=== PATIENT | female | born 1935 | race African-American/Black ===

== ENCOUNTER 2017-02-26 12:14 | Emergency (ER) | payer MEDICARE, MEDICAID ==
[~2017-02-26] VITALS: Ht 165.1 cm; Wt 68.0 kg
[~2017-02-26 12:14] MED LIST: ASPIRIN; DIOVAN; INSULIN; SIMVASTATIN
[2017-02-26 14:31] VITALS: BP 147/73
[2017-02-26] MEDS ORDERED: ACETAMINOPHEN 500MG TABLET PO STA (14:35)
[2017-02-26] MEDS ORDERED: CLONIDINE 0.2MG TABLET PO ONE (14:45)
[2017-02-26] MEDS ORDERED: IBUPROFEN 400MG TABLET PO ONE (14:45)
[2017-02-26 15:35] LABS: INR 1.2; PARTIAL THROMBOPLASTIN TIME 27.3 sec (23.4-31.0); PROTHROMBIN TIME 12.4 sec (9.4-11.6)
[2017-02-26 15:38] LABS: CARBON DIOXIDE 27 mEq/L (21-32); CHLORIDE 107 mEq/L (98-107)
[2017-02-26 15:41] LABS: HEMATOCRIT. 39.2 % (36.0-48.0); HEMOGLOBIN. 12.5 g/dL (12.0-16.0); MEAN CORPUSCULAR HEMOGLOBIN 28.2 pg (28.0-32.0); MEAN CORPUSCULAR VOLUME 88.2 fL (81.0-99.0); MEAN PLATELET VOLUME 9.3 fl (7.4-10.4); PLATELET 142 x1000/uL (130-400); RED BLOOD CELL COUNT 4.45 mill/uL (4.2-5.4); RED CELL DISTRIBUTION WIDTH 14.7 % (11.6-14.6)
[2017-02-26 16:22] LABS: ATYPICAL LYMPHOCYTES 1; PLATELET ESTIMATE NORMAL
== END 2017-02-26 20:30 | disposition home or self-care (01) ==
LOC: ER 12:38
DX: M19.90 Unspecified osteoarthritis, unspecified site (principal); R25.2 Cramp and spasm; R06.02 Shortness of breath; I10 Essential (primary) hypertension; E78.00 Pure hypercholesterolemia, unspecified; E11.9 Type 2 diabetes mellitus without complications; R79.1 Abnormal coagulation profile; Z79.82 Long term (current) use of aspirin
CPT/HCPCS: 36415; 71010; 73560; 80048; 83735; 85025; 85610; 85730; 93005; 93970; 99285

== ENCOUNTER → 2017-04-24 | Outpatient (CLI) | payer MEDICARE, MEDICAID ==
[~2017-04-24] MED LIST changes: +ASPI-1159 PO; -ASPIRIN; +ASPIRIN PO; +IOHEXOL-350 100 ML BOTTLE ONE; +NVLG73 SUBCUT
== END | disposition home or self-care (01) ==
LOC: CT 04-23 09:02
PROVIDERS: ATTEND Internal Medicine
DX: I70.0 Atherosclerosis of aorta (principal)
CPT/HCPCS: 75635; Q9967

== ENCOUNTER 2017-04-25 21:16 | Inpatient (IN) | payer MEDICARE, MEDICAID ==
[~2017-04-25] VITALS: Ht 167.6 cm; Wt 79.8 kg
[~2017-04-25 21:16] MED LIST changes: -ASPI-1159 PO; -IOHEXOL-350 100 ML BOTTLE ONE; -NVLG73 SUBCUT
[2017-04-25] MEDS ORDERED: SODIUM CHLORIDE 0.9% 1,000 ML IV SCH (21:58)
[2017-04-25] MEDS ORDERED: FAMOTIDINE 20MG/2ML VIAL IV ONE (22:00)
[2017-04-25] MEDS ORDERED: METHYLPREDNISOLONE SOD SUCC 125 MG/2 ML VIAL IV ONE (22:00)
[2017-04-25] MEDS ORDERED: DIPHENHYDRAMINE 50MG/ML VIAL IV ONE (22:00)
[2017-04-25 22:57] LABS: BASOPHILS % 0.4 % (0.0-2.0); EOSINOPHILS % 1.8 % (0.0-5.0); HEMATOCRIT. 39.1 % (36.0-48.0); LYMPHOCYTES % 10.2 % (20.0-50.0); MEAN CORPUSCULAR HEMOGLOBIN 28.9 pg (28.0-32.0); MEAN PLATELET VOLUME 8.5 fl (7.4-10.4); MONOCYTES % 5.2 % (2.0-8.0); NEUTROPHILS % 82.4 % (40.0-76.0); PLATELET 165 x1000/uL (130-400); RED BLOOD CELL COUNT 4.49 mill/uL (4.2-5.4); RED CELL DISTRIBUTION WIDTH 14.4 % (11.6-14.6)
[2017-04-25 22:58] LABS: CHLORIDE 104 mEq/L (98-107); TROPONIN I 0.12 ng/mL (0.00-0.04)
[2017-04-25 23:05] LABS: INR 1.2; PROTHROMBIN TIME 12.7 sec (9.4-11.6)
[2017-04-25] MEDS ORDERED: SODIUM CHLORIDE 0.9% 1000ML BAG (SEPSIS BOLUS) IV ONE (23:45)
[2017-04-25] MEDS ORDERED: VANCOMYCIN 1 G PREMIX 200 ML IV SCH (23:45)
[2017-04-26 02:07] LABS: CLARITY URINE CLEAR (CLEAR); COLOR URINE YELLOW (YELLOW); KETONES URINE NEGATIVE (NEGATIVE); LEUKOCYTE ESTERASE URINE 2+ (NEGATIVE); NITRITE URINE NEGATIVE (NEGATIVE); OCCULT BLOOD URINE NEGATIVE (NEGATIVE); PROTEIN URINE NEGATIVE (NEGATIVE); SPECIFIC GRAVITY URINE 1.008 (1.005-1.030)
[2017-04-26 09:33] VITALS: BP 131/65
[2017-04-26 09:40] VITALS: BP 131/65
[2017-04-26] MEDS ORDERED: ASPI-1159 PO (09:48)
[2017-04-26] MEDS ORDERED: DEXTROSE 50% WATER 50ML SYRINGE IV PRN (10:30)
[2017-04-26] MEDS ORDERED: HYDROCODONE/ACETAMINOPHEN 5/325MG TABLET PO PRN (10:30)
[2017-04-26] MEDS: ASPIRIN 81MG EC TABLET PO SCH (10:53)
[2017-04-26] MEDS: METHYLPREDNISOLONE SOD SUCC 40 MG/ML VIAL IV SCH ×2 (10:53→21:12)
[2017-04-26 12:00] VITALS: BP 127/56
[2017-04-26] MEDS: INSULIN LISPRO 100 UNITS/ML SUBCUT SCH ×2 (12:19→17:28)
[2017-04-26] MEDS: BLOOD SUGAR DIAGNOSTIC STRIP TEST SCH ×3 (12:19→20:38)
[2017-04-26 16:00] VITALS: BP 114/62
[2017-04-26] MEDS ORDERED: DIPHENHYDRAMINE 25MG CAPSULE PO PRN (18:15)
[2017-04-26 20:31] VITALS: BP 116/78
[2017-04-26] MEDS: FAMOTIDINE 20MG TABLET PO SCH (21:12)
[2017-04-26] MEDS ORDERED: INSULIN GLARGINE UD 100 UNITS/ML SYR SUBCUT NR (22:00)
[2017-04-26 23:59] VITALS: BP 112/50
[2017-04-27 04:00] VITALS: BP 128/53
[2017-04-27 05:37] LABS: HEMATOCRIT. 33.4 % (36.0-48.0); MEAN CORPUSCULAR HEMOGLOBIN 28.8 pg (28.0-32.0); MEAN CORPUSCULAR VOLUME 87.7 fL (81.0-99.0); MEAN PLATELET VOLUME 8.9 fl (7.4-10.4); PLATELET 150 x1000/uL (130-400); RED BLOOD CELL COUNT 3.81 mill/uL (4.2-5.4); RED CELL DISTRIBUTION WIDTH 14.3 % (11.6-14.6)
[2017-04-27] MEDS: BLOOD SUGAR DIAGNOSTIC STRIP TEST SCH ×4 (05:46→21:26)
[2017-04-27 06:30] LABS: CHLORIDE 105 mEq/L (98-107)
[2017-04-27] MEDS ORDERED: DEXTROSE 50% WATER 50ML SYRINGE IV PRN (06:30)
[2017-04-27] MEDS ORDERED: BLOOD SUGAR DIAGNOSTIC STRIP TEST SCH (07:40)
[2017-04-27 07:54] LABS: PLATELET ESTIMATE NORMAL
[2017-04-27 08:00] VITALS: BP 122/58
[2017-04-27] MEDS: INSULIN LISPRO 100 UNITS/ML SUBCUT SCH ×4 (08:28→21:32)
[2017-04-27] MEDS: METHYLPREDNISOLONE SOD SUCC 40 MG/ML VIAL IV SCH ×2 (08:29→21:22)
[2017-04-27] MEDS: ASPIRIN 81MG EC TABLET PO SCH (08:29)
[2017-04-27] MEDS: FAMOTIDINE 20MG TABLET PO SCH ×2 (08:29→21:22)
[2017-04-27 12:00] VITALS: BP 132/68
[2017-04-27 16:00] VITALS: BP 132/51
[2017-04-27] MEDS ORDERED: NVLG73 SUBCUT (17:32)
[2017-04-27] MEDS ORDERED: INS NPH/REG HM 70-30 100 UNITS/ML 10ML VIAL (HUMULIN 70-30) SUBCUT NR (18:30)
[2017-04-27 20:00] VITALS: BP 152/61
[2017-04-28] VITALS: BP 128/53
[2017-04-28 04:00] VITALS: BP 134/60
[2017-04-28] MEDS: BLOOD SUGAR DIAGNOSTIC STRIP TEST SCH ×2 (06:37→12:37)
[2017-04-28 08:00] VITALS: BP 131/64
[2017-04-28] MEDS: FAMOTIDINE 20MG TABLET PO SCH (08:23)
[2017-04-28] MEDS: METHYLPREDNISOLONE SOD SUCC 40 MG/ML VIAL IV SCH (08:23)
[2017-04-28] MEDS: ASPIRIN 81MG EC TABLET PO SCH (08:23)
[2017-04-28] MEDS: INSULIN LISPRO 100 UNITS/ML SUBCUT SCH ×2 (08:23→12:37)
[2017-04-28 12:00] VITALS: BP 102/83
[2017-04-28 15:04] VITALS: BP 131/64
[2017-04-28 16:00] VITALS: BP 141/61
== END 2017-04-28 15:55 | disposition home or self-care (01) | DRG 916 ==
LOC: ER 21:16 → 7WST 23:44 → OBSVTOIN 23:44 → INTOOBSV 23:44 → ENRESERV 04-26 07:02
PROVIDERS: ADMIT Internal Medicine; ATTEND Internal Medicine
DX: T88.6XXA Anaphylactic reaction due to adverse effect of correct drug or medicament properly administered, initial encounter (principal); E44.0 Moderate protein-calorie malnutrition; E11.9 Type 2 diabetes mellitus without complications; I10 Essential (primary) hypertension; M19.90 Unspecified osteoarthritis, unspecified site; Y83.8 Other surgical procedures as the cause of abnormal reaction of the patient, or of later complication, without mention of misadventure at the time of the procedure; K21.9 Gastro-esophageal reflux disease without esophagitis; T49.0X5A Adverse effect of local antifungal, anti-infective and anti-inflammatory drugs, initial encounter; Z79.4 Long term (current) use of insulin; Z79.82 Long term (current) use of aspirin; Z85.3 Personal history of malignant neoplasm of breast; Z90.13 Acquired absence of bilateral breasts and nipples; Z90.710 Acquired absence of both cervix and uterus; Z91.041 Radiographic dye allergy status; Z90.49 Acquired absence of other specified parts of digestive tract; Y92.89 Other specified places as the place of occurrence of the external cause
CPT/HCPCS: 36415; 71045; 75635; 80048; 80053; 81003; 82962; 83605; 83880; 84484; 85025; 85610; 86850; 86900; 87040; 87086; 93005; 96361; 96365; 96366; 96372; 96375; 99291; J1200; J1815; J2920; J2930; J3370; J3490; J7030; Q0163; Q9967

== ENCOUNTER 2018-01-29 08:38 | Inpatient (IN) | payer MEDICARE, MEDICAID ==
[~2018-01-29] VITALS: Ht 172.7 cm; Wt 92.7 kg
[~2018-01-29 08:38] MED LIST changes: +ASPI-1159 PO; -ASPIRIN PO; +ATOR10TA MT; -DIOVAN; -INSULIN; +NVLG73 SUBCUT; -SIMVASTATIN
[2018-01-29] MEDS ORDERED: PANTOPRAZOLE SODIUM 40 MG/VIAL IV ONE (10:45)
[2018-01-29 12:15] LABS: HEMOGLOBIN. 11.3 g/dL (12.0-16.0); MEAN CORPUSCULAR HEMOGLOBIN 28.7 pg (28.0-32.0); MEAN CORPUSCULAR VOLUME 86.7 fL (81.0-99.0); MEAN PLATELET VOLUME 9.9 fl (7.4-10.4); PLATELET 126 x1000/uL (130-400); RED BLOOD CELL COUNT 3.92 mill/uL (4.2-5.4); RED CELL DISTRIBUTION WIDTH 16.3 % (11.6-14.6)
[2018-01-29 12:17] LABS: CHLORIDE 109 mEq/L (98-107)
[2018-01-29 12:19] LABS: INR 1.4; PARTIAL THROMBOPLASTIN TIME 37.2 sec (23.4-31.0)
[2018-01-29] MEDS ORDERED: ASPIRIN 325MG TABLET PO ONE (13:00)
[2018-01-29] MEDS ORDERED: LEVOFLOXACIN 750MG PREMIX 150 ML IV ONE (13:00)
[2018-01-29 13:06] LABS: PLATELET ESTIMATE SLIGHTLY DECREASED
[2018-01-29 13:16] LABS: CLARITY URINE CLOUDY (CLEAR); COLOR URINE DARK YELLOW (YELLOW); KETONES URINE NEGATIVE (NEGATIVE); LEUKOCYTE ESTERASE URINE NEGATIVE (NEGATIVE); NITRITE URINE NEGATIVE (NEGATIVE); OCCULT BLOOD URINE 3+ (NEGATIVE); PROTEIN URINE NEGATIVE (NEGATIVE); SPECIFIC GRAVITY URINE 1.021 (1.005-1.030)
[2018-01-29] MEDS ORDERED: CLONIDINE 0.1MG TABLET PO PRN (23:00)
[2018-01-29] MEDS ORDERED: ONDANSETRON HCL 4MG/2ML INJ IV PRN (23:00)
[2018-01-29] MEDS ORDERED: HYDROCODONE/ACETAMINOPHEN 5/325MG TABLET PO PRN (23:00)
[2018-01-29 23:15] VITALS: BP 136/61
[2018-01-30] VITALS (7 sets, daily range): BP systolic 121–155; BP diastolic 50–67
[2018-01-30] MEDS: DEXT 5%/0.45% NACL 1000ML 1,000 ML IV SCH ×2 (01:39→14:03)
[2018-01-30] MEDS: PANTOPRAZOLE SODIUM 40 MG/VIAL IV SCH ×2 (01:53→09:23)
[2018-01-30] MEDS ORDERED: DEXTROSE 50% WATER 50ML SYRINGE IV PRN (03:00)
[2018-01-30 07:05] LABS: HEMATOCRIT. 31.9 % (36.0-48.0); HEMOGLOBIN. 10.8 g/dL (12.0-16.0); MEAN CORPUSCULAR HEMOGLOBIN 28.7 pg (28.0-32.0); MEAN CORPUSCULAR VOLUME 85.1 fL (81.0-99.0); MEAN PLATELET VOLUME 10.3 fl (7.4-10.4); PLATELET 126 x1000/uL (130-400); RED BLOOD CELL COUNT 3.75 mill/uL (4.2-5.4)
[2018-01-30] MEDS: BLOOD SUGAR DIAGNOSTIC STRIP TEST SCH ×4 (07:20→21:04)
[2018-01-30 07:22] LABS: CHLORIDE 111 mEq/L (98-107)
[2018-01-30 07:32] LABS: CREATINE KINASE 44 IU/L (26-192)
[2018-01-30 07:33] LABS: T4 FREE 1.03 ng/dL (0.76-1.46)
[2018-01-30 07:37] LABS: CREATINE KINASE MB FRACTION 1.2 ng/mL (0.5-3.6)
[2018-01-30] MEDS: INSULIN LISPRO 100 UNITS/ML SUBCUT SCH ×4 (09:20→21:26)
[2018-01-30 13:24] LABS: HEMATOCRIT 32.4 % (36.0-48.0); HEMOGLOBIN 10.8 g/dL (12.0-16.0)
[2018-01-30 13:46] LABS: TOTAL IRON BINDING CAPACITY 169 ug/dL (250-450)
[2018-01-30 13:49] LABS: INR 1.4; PARTIAL THROMBOPLASTIN TIME 41.5 sec (23.4-31.0); PROTHROMBIN TIME 14.3 sec (9.1-11.1)
[2018-01-30 13:52] LABS: FERRITIN 192 ng/mL (10-291)
[2018-01-30] MEDS: PHENYLEPHRINE/SHK LV/MO/PET,WH RECTAL OINT 28GM PR SCH ×2 (14:03→18:40)
[2018-01-30 14:47] LABS: CREATINE KINASE MB FRACTION 1.8 ng/mL (0.5-3.6)
[2018-01-30 20:09] LABS: HEMATOCRIT 32.3 % (36.0-48.0); HEMOGLOBIN 10.6 g/dL (12.0-16.0)
[2018-01-30 20:10] LABS: PLATELET ESTIMATE NORMAL
[2018-01-30] MEDS: TRAZODONE HCL 50MG TABLET PO SCH (21:13)
[2018-01-30] MEDS: LEVOFLOXACIN 500MG PREMIX 100 ML IV SCH (21:13)
[2018-01-31] VITALS (8 sets, daily range): BP systolic 109–135; BP diastolic 45–69
[2018-01-31 00:34] LABS: HEMATOCRIT 30.5 % (36.0-48.0); HEMOGLOBIN 10.2 g/dL (12.0-16.0)
[2018-01-31 05:30] LABS: CLARITY URINE CLOUDY (CLEAR); COLOR URINE AMBER (YELLOW); KETONES URINE NEGATIVE (NEGATIVE); LEUKOCYTE ESTERASE URINE NEGATIVE (NEGATIVE); NITRITE URINE NEGATIVE (NEGATIVE); OCCULT BLOOD URINE NEGATIVE (NEGATIVE); PH URINE 5.5 (4.5-8.0); PROTEIN URINE NEGATIVE (NEGATIVE); SPECIFIC GRAVITY URINE 1.023 (1.005-1.030)
[2018-01-31] MEDS: PHENYLEPHRINE/SHK LV/MO/PET,WH RECTAL OINT 28GM PR SCH ×4 (06:52→17:49)
[2018-01-31] MEDS: DEXT 5%/0.45% NACL 1000ML 1,000 ML IV SCH (06:53)
[2018-01-31] MEDS: BLOOD SUGAR DIAGNOSTIC STRIP TEST SCH ×4 (06:53→21:00)
[2018-01-31 06:56] LABS: HEMOGLOBIN. 10.6 g/dL (12.0-16.0); MEAN CORPUSCULAR VOLUME 84.6 fL (81.0-99.0); MEAN PLATELET VOLUME 10.5 fl (7.4-10.4); PLATELET 126 x1000/uL (130-400); RED BLOOD CELL COUNT 3.67 mill/uL (4.2-5.4); RED CELL DISTRIBUTION WIDTH 15.9 % (11.6-14.6)
[2018-01-31 07:35] LABS: CHLORIDE 108 mEq/L (98-107)
[2018-01-31] MEDS: INSULIN LISPRO 100 UNITS/ML SUBCUT SCH ×4 (07:50→21:42)
[2018-01-31] MEDS: PANTOPRAZOLE SODIUM 40 MG/VIAL IV SCH (09:12)
[2018-01-31 10:17] LABS: PLATELET ESTIMATE SLIGHTLY DECREASED
[2018-01-31] MEDS ORDERED: BACTERIOSTATIC SODIUM CHLORIDE 0.9% 30ML VIAL IJ ONE (11:56)
[2018-01-31] MEDS ORDERED: SIMETHICONE 40 MG/0.6 ML 30ML ONE (11:56)
[2018-01-31] MEDS ORDERED: FENTANYL CITRATE/PF 50MCG/ML 2ML VIAL ONE (14:11)
[2018-01-31] MEDS ORDERED: MIDAZOLAM HCL 2 MG/2 ML VIAL IV ONE (14:11)
[2018-01-31] MEDS ORDERED: MIDAZOLAM HCL 5 MG/5 ML VIAL ONE (14:12)
[2018-01-31] MEDS ORDERED: FENTANYL CITRATE/PF 50MCG/ML 2ML VIAL IV PRN (14:14)
[2018-01-31 18:13] LABS: INR 1.5; PARTIAL THROMBOPLASTIN TIME 38.7 sec (23.4-31.0); PROTHROMBIN TIME 15.4 sec (9.1-11.1)
[2018-01-31] MEDS: LEVOFLOXACIN 500MG PREMIX 100 ML IV SCH (21:15)
[2018-01-31] MEDS: TRAZODONE HCL 50MG TABLET PO SCH (21:41)
[2018-01-31 23:34] LABS: VITAMIN B12 SERUM 512 pg/mL (211-911)
[2018-01-31 23:35] LABS: FOLIC ACID (FOLATE) SERUM > 20.00 ng/mL (>5.38)
[2018-02-01] VITALS (8 sets, daily range): BP systolic 94–141; BP diastolic 46–78
[2018-02-01] MEDS: PHENYLEPHRINE/SHK LV/MO/PET,WH RECTAL OINT 28GM PR SCH ×5 (00:26→23:03)
[2018-02-01] MEDS: BLOOD SUGAR DIAGNOSTIC STRIP TEST SCH ×4 (07:08→20:15)
[2018-02-01] MEDS: INSULIN LISPRO 100 UNITS/ML SUBCUT SCH ×4 (07:50→21:19)
[2018-02-01] MEDS: PANTOPRAZOLE SODIUM 40 MG/VIAL IV SCH (09:38)
[2018-02-01] MEDS: TRAZODONE HCL 50MG TABLET PO SCH (20:15)
[2018-02-01] MEDS: LEVOFLOXACIN 500MG PREMIX 100 ML IV SCH (20:15)
[2018-02-01] MEDS: ACETAMINOPHEN 325MG TABLET PO PRN (21:38)
[2018-02-02] VITALS (7 sets, daily range): BP systolic 110–150; BP diastolic 36–64
[2018-02-02 00:39] LABS: CHLORIDE 106 mEq/L (98-107)
[2018-02-02 00:44] LABS: HEMOGLOBIN 10.2 g/dL (12.0-16.0); MEAN CORPUSCULAR VOLUME 85.3 fL (81.0-99.0); PLATELET 122 x1000/uL (130-400); RED BLOOD CELL COUNT 3.52 mill/uL (4.2-5.4); RED CELL DISTRIBUTION WIDTH 15.7 % (11.6-14.6)
[2018-02-02] MEDS: PHENYLEPHRINE/SHK LV/MO/PET,WH RECTAL OINT 28GM PR SCH ×3 (05:12→18:00)
[2018-02-02] MEDS: BLOOD SUGAR DIAGNOSTIC STRIP TEST SCH ×4 (06:34→21:25)
[2018-02-02] MEDS: INSULIN LISPRO 100 UNITS/ML SUBCUT SCH ×4 (08:33→21:54)
[2018-02-02] MEDS: PANTOPRAZOLE SODIUM 40 MG/VIAL IV SCH (08:34)
[2018-02-02 12:01] LABS: BG BASE EXCESS -1.1 mmol/L (-2.0-2.0); BG DEOXYHEMOGLOBIN 6.1 % (0.0-5.0); BG HCO3 ACT 22.7 mmol/L (22.0-26.0); BG METHEMOGLOBIN 0.2 % (0.0-1.5); BG OXYGEN SATURATION 93.8 % (92.0-98.5); BG OXYHEMOGLOBIN 92.7 % (94.0-97.0); BG PCO2 34.8 mmHg (35.0-45.0); BG PH 7.433 (7.350-7.450); BG PO2 65.4 mmHg (75.0-100.0); BG SAMPLE SITE RIGHT BRACHIAL; BG TOTAL HEMOGLOBIN 11.4 g/dL (12.0-18.0); BG VENT MODE ROOM AIR
[2018-02-02] MEDS: TRAZODONE HCL 50MG TABLET PO SCH (21:20)
[2018-02-02] MEDS: LEVOFLOXACIN 500MG PREMIX 100 ML IV SCH (21:25)
[2018-02-02] MEDS: ACETAMINOPHEN 325MG TABLET PO PRN (22:11)
[2018-02-03] VITALS: BP 109/47
[2018-02-03] MEDS: PHENYLEPHRINE/SHK LV/MO/PET,WH RECTAL OINT 28GM PR SCH ×4 (00:23→17:26)
[2018-02-03 04:00] VITALS: BP 125/41
[2018-02-03 05:37] LABS: CLARITY URINE CLEAR (CLEAR); COLOR URINE DARK YELLOW (YELLOW); KETONES URINE NEGATIVE (NEGATIVE); LEUKOCYTE ESTERASE URINE NEGATIVE (NEGATIVE); NITRITE URINE NEGATIVE (NEGATIVE); OCCULT BLOOD URINE NEGATIVE (NEGATIVE); PROTEIN URINE NEGATIVE (NEGATIVE); SPECIFIC GRAVITY URINE 1.023 (1.005-1.030)
[2018-02-03 06:28] LABS: HEMATOCRIT 31.3 % (36.0-48.0); HEMOGLOBIN 10.5 g/dL (12.0-16.0); MEAN CORPUSCULAR VOLUME 86.1 fL (81.0-99.0); PLATELET 119 x1000/uL (130-400); RED BLOOD CELL COUNT 3.63 mill/uL (4.2-5.4); RED CELL DISTRIBUTION WIDTH 16.7 % (11.6-14.6)
[2018-02-03] MEDS: BLOOD SUGAR DIAGNOSTIC STRIP TEST SCH ×3 (06:31→17:24)
[2018-02-03 08:00] VITALS: BP 105/45
[2018-02-03] MEDS: PANTOPRAZOLE SODIUM 40 MG/VIAL IV SCH (10:15)
[2018-02-03] MEDS: INSULIN LISPRO 100 UNITS/ML SUBCUT SCH ×3 (10:18→17:25)
[2018-02-03 10:40] LABS: CHLORIDE 107 mEq/L (98-107)
[2018-02-03 11:12] LABS: BG BASE EXCESS -0.3 mmol/L (-2.0-2.0); BG CARBOXYHEMOGLOBIN 0.9 % (0.5-1.5); BG DEOXYHEMOGLOBIN 8.3 % (0.0-5.0); BG FRACTION INSPIRED OXYGEN 21; BG HCO3 ACT 24.1 mmol/L (22.0-26.0); BG METHEMOGLOBIN 0.2 % (0.0-1.5); BG OXYGEN SATURATION 91.6 % (92.0-98.5); BG OXYHEMOGLOBIN 90.6 % (94.0-97.0); BG PCO2 38.3 mmHg (35.0-45.0); BG PH 7.416 (7.350-7.450); BG PO2 60.7 mmHg (75.0-100.0); BG SAMPLE SITE LEFT BRACHIAL; BG TOTAL HEMOGLOBIN 11.3 g/dL (12.0-18.0); BG VENT MODE ROOM AIR
[2018-02-03 12:00] VITALS: BP 114/57
[2018-02-03] MEDS ORDERED: DOCUSATE SODIUM 250MG CAPSULE PO SCH (12:00)
[2018-02-03] MEDS ORDERED: LACTULOSE 20G/30ML UDC PO SCH (12:00)
[2018-02-03 15:53] VITALS: BP 114/57
[2018-02-03 16:00] VITALS: BP_SYST 121; BP_SYST 124; BP_DIAS 43; BP_DIAS 56; BP_DIAS 65
== END 2018-02-03 19:54 | DRG 377 ==
LOC: ER 08:55 → 6WST 13:49 → EDBEDREQ 13:51 → EDBEDREQTM 13:52 → EDBEDREQ 13:52 → ENRESERV 22:04
PROVIDERS: ADMIT Internal Medicine; ATTEND Internal Medicine
PROC: 0DB68ZX Excision of Stomach, Via Natural or Artificial Opening Endoscopic, Diagnostic (ICD-10-PCS; principal; 2018-01-31 13:00)
DX: K57.91 Diverticulosis of intestine, part unspecified, without perforation or abscess with bleeding (principal); K85.90 Acute pancreatitis without necrosis or infection, unspecified; J18.1 Lobar pneumonia, unspecified organism; E87.2 Acidosis; D68.9 Coagulation defect, unspecified; J44.0 Chronic obstructive pulmonary disease with (acute) lower respiratory infection; N39.0 Urinary tract infection, site not specified; D64.9 Anemia, unspecified; E11.9 Type 2 diabetes mellitus without complications; D69.6 Thrombocytopenia, unspecified; E86.0 Dehydration; E66.9 Obesity, unspecified; E78.00 Pure hypercholesterolemia, unspecified; E78.49 Other hyperlipidemia; K29.60 Other gastritis without bleeding; I10 Essential (primary) hypertension; M19.90 Unspecified osteoarthritis, unspecified site; R16.0 Hepatomegaly, not elsewhere classified; F41.9 Anxiety disorder, unspecified; I25.10 Atherosclerotic heart disease of native coronary artery without angina pectoris; K52.9 Noninfective gastroenteritis and colitis, unspecified; K59.00 Constipation, unspecified; K82.4 Cholesterolosis of gallbladder; R09.02 Hypoxemia; Z79.4 Long term (current) use of insulin; Z79.82 Long term (current) use of aspirin; Z85.3 Personal history of malignant neoplasm of breast; Z90.10 Acquired absence of unspecified breast and nipple; Z90.49 Acquired absence of other specified parts of digestive tract; Z90.710 Acquired absence of both cervix and uterus; Z92.21 Personal history of antineoplastic chemotherapy; Z91.041 Radiographic dye allergy status; Z79.899 Other long term (current) drug therapy; Z68.31 Body mass index [BMI] 31.0-31.9, adult
CPT/HCPCS: 36415; 36600; 71045; 80048; 82270; 82375; 82550; 82553; 82607; 82728; 82746; 82805; 82962; 83540; 83550; 83605; 83880; 84145; 84439; 84443; 84484; 85014; 85018; 85027; 86850; 86900; 88305; 88313; 93005; 96365; 96366; 96375; 97116; 97162; 97530; 99291; C9113; J1815; J1956; J2250; J2405; J3010; J3490

== ENCOUNTER 2018-02-03 20:00 | Inpatient (IN) | payer MEDICARE, MEDICAID ==
[~2018-02-03] VITALS: Ht 170.2 cm; Wt 64.0 kg
[2018-02-03 20:05] VITALS: BP 142/49
[2018-02-03] MEDS ORDERED: DEXTROSE 50% WATER 50ML SYRINGE IV PRN (20:45)
[2018-02-03] MEDS ORDERED: HYDROCODONE/ACETAMINOPHEN 5/325MG TABLET PO PRN (20:45)
[2018-02-03] MEDS ORDERED: ONDANSETRON HCL 4MG/2ML INJ IV PRN (20:45)
[2018-02-03] MEDS: TRAZODONE HCL 50MG TABLET PO SCH (21:33)
[2018-02-03] MEDS: BLOOD SUGAR DIAGNOSTIC STRIP TEST SCH (21:35)
[2018-02-03] MEDS: INSULIN LISPRO 100 UNITS/ML SUBCUT SCH (21:35)
[2018-02-03] MEDS ORDERED: LEVOFLOXACIN 500MG PREMIX 100 ML IV SCH (23:00)
[2018-02-03] MEDS: LEVOFLOXACIN 250MG PREMIX 50 ML IV SCH (23:10)
[2018-02-03] MEDS: PHENYLEPHRINE/SHK LV/MO/PET,WH RECTAL OINT 28GM PR SCH (23:11)
[2018-02-04] MEDS: PHENYLEPHRINE/SHK LV/MO/PET,WH RECTAL OINT 28GM PR SCH ×4 (06:13→23:45)
[2018-02-04] MEDS: BLOOD SUGAR DIAGNOSTIC STRIP TEST SCH ×4 (06:13→20:51)
[2018-02-04] MEDS: INSULIN LISPRO 100 UNITS/ML SUBCUT SCH ×4 (06:24→20:51)
[2018-02-04 07:10] LABS: HEMATOCRIT 32.4 % (36.0-48.0); HEMOGLOBIN 10.9 g/dL (12.0-16.0); MEAN CORPUSCULAR HEMOGLOBIN 28.5 pg (28.0-32.0); MEAN CORPUSCULAR VOLUME 84.8 fL (81.0-99.0); PLATELET 128 x1000/uL (130-400); RED BLOOD CELL COUNT 3.83 mill/uL (4.2-5.4); RED CELL DISTRIBUTION WIDTH 16.3 % (11.6-14.6)
[2018-02-04 07:37] LABS: CHLORIDE 106 mEq/L (98-107)
[2018-02-04 08:00] VITALS: BP 112/46
[2018-02-04] MEDS: PANTOPRAZOLE 40MG DR TABLET PO SCH (08:41)
[2018-02-04] MEDS ORDERED: DOCUSATE SODIUM 250MG CAPSULE PO SCH (09:00)
[2018-02-04 20:00] VITALS: BP 136/57
[2018-02-04 20:09] LABS: CLARITY URINE CLEAR (CLEAR); COLOR URINE DARK YELLOW (YELLOW); KETONES URINE NEGATIVE (NEGATIVE); LEUKOCYTE ESTERASE URINE NEGATIVE (NEGATIVE); NITRITE URINE NEGATIVE (NEGATIVE); OCCULT BLOOD URINE NEGATIVE (NEGATIVE); PROTEIN URINE TRACE (NEGATIVE); SPECIFIC GRAVITY URINE 1.024 (1.005-1.030)
[2018-02-04] MEDS: TRAZODONE HCL 50MG TABLET PO SCH (20:39)
[2018-02-04] MEDS: LEVOFLOXACIN 250MG PREMIX 50 ML IV SCH (20:39)
[2018-02-05 04:24] LABS: INR 1.4
[2018-02-05 04:34] LABS: CHLORIDE 106 mEq/L (98-107)
[2018-02-05 06:20] LABS: HEMATOCRIT 32.4 % (36.0-48.0); HEMOGLOBIN 10.8 g/dL (12.0-16.0); MEAN CORPUSCULAR HEMOGLOBIN 28.1 pg (28.0-32.0); MEAN CORPUSCULAR VOLUME 84.7 fL (81.0-99.0); PLATELET 122 x1000/uL (130-400); RED BLOOD CELL COUNT 3.83 mill/uL (4.2-5.4); RED CELL DISTRIBUTION WIDTH 16.5 % (11.6-14.6)
[2018-02-05] MEDS: PHENYLEPHRINE/SHK LV/MO/PET,WH RECTAL OINT 28GM PR SCH ×4 (06:36→23:57)
[2018-02-05] MEDS: BLOOD SUGAR DIAGNOSTIC STRIP TEST SCH ×4 (06:36→20:37)
[2018-02-05] MEDS: INSULIN LISPRO 100 UNITS/ML SUBCUT SCH ×4 (06:43→21:04)
[2018-02-05 08:00] VITALS: BP 127/58
[2018-02-05] MEDS: DOCUSATE SODIUM 100MG CAPSULE PO SCH ×2 (08:05→18:02)
[2018-02-05] MEDS: PANTOPRAZOLE 40MG DR TABLET PO SCH (08:05)
[2018-02-05] MEDS: ACETAMINOPHEN 325MG TABLET PO PRN (15:18)
[2018-02-05] MEDS ORDERED: GUAIFENESIN 200MG/10ML SUGAR FREE UDC PO PRN (16:15)
[2018-02-05 18:03] LABS: BG BASE EXCESS -1.7 mmol/L (-2.0-2.0); BG CARBOXYHEMOGLOBIN 0.8 % (0.5-1.5); BG FRACTION INSPIRED OXYGEN 21; BG HCO3 ACT 20.8 mmol/L (22.0-26.0); BG METHEMOGLOBIN 0.4 % (0.0-1.5); BG OXYGEN SATURATION 92.9 % (92.0-98.5); BG OXYHEMOGLOBIN 91.8 % (94.0-97.0); BG PCO2 28.6 mmHg (35.0-45.0); BG PO2 65.8 mmHg (75.0-100.0); BG SAMPLE SITE RIGHT BRACHIAL; BG TOTAL HEMOGLOBIN 11.3 g/dL (12.0-18.0); BG VENT MODE ROOM AIR
[2018-02-05 20:00] VITALS: BP 135/52
[2018-02-05] MEDS: LEVOFLOXACIN 250MG PREMIX 50 ML IV SCH (20:35)
[2018-02-05] MEDS: GUAIFENESIN 600MG ER TABLET PO SCH (20:35)
[2018-02-05] MEDS: TRAZODONE HCL 50MG TABLET PO SCH (20:35)
[2018-02-05] MEDS: IPRATROPIUM/ALBUTEROL 0.5-3(2.5)MG/3ML NEB HHN SCH (21:35)
[2018-02-06] MEDS: IPRATROPIUM/ALBUTEROL 0.5-3(2.5)MG/3ML NEB HHN SCH ×4 (01:47→21:17)
[2018-02-06] MEDS: PHENYLEPHRINE/SHK LV/MO/PET,WH RECTAL OINT 28GM PR SCH ×3 (05:34→18:00)
[2018-02-06] MEDS: BLOOD SUGAR DIAGNOSTIC STRIP TEST SCH ×4 (06:01→21:00)
[2018-02-06 07:20] LABS: HEMATOCRIT 32.4 % (36.0-48.0); HEMOGLOBIN 10.9 g/dL (12.0-16.0); MEAN CORPUSCULAR HEMOGLOBIN 28.4 pg (28.0-32.0); MEAN CORPUSCULAR VOLUME 84.4 fL (81.0-99.0); PLATELET 126 x1000/uL (130-400); RED BLOOD CELL COUNT 3.84 mill/uL (4.2-5.4); RED CELL DISTRIBUTION WIDTH 16.2 % (11.6-14.6)
[2018-02-06] MEDS: INSULIN LISPRO 100 UNITS/ML SUBCUT SCH ×4 (07:41→22:20)
[2018-02-06 07:46] LABS: CHLORIDE 105 mEq/L (98-107)
[2018-02-06 08:14] VITALS: BP 127/50
[2018-02-06] MEDS: PANTOPRAZOLE 40MG DR TABLET PO SCH (08:24)
[2018-02-06] MEDS: DOCUSATE SODIUM 100MG CAPSULE PO SCH ×2 (08:24→18:03)
[2018-02-06] MEDS: GUAIFENESIN 600MG ER TABLET PO SCH ×2 (08:24→22:10)
[2018-02-06 20:00] VITALS: BP 158/59
[2018-02-06] MEDS: TRAZODONE HCL 50MG TABLET PO SCH (22:10)
[2018-02-06] MEDS: CLONIDINE 0.1MG TABLET PO PRN (22:10)
[2018-02-06] MEDS: LEVOFLOXACIN 250MG PREMIX 50 ML IV SCH (22:11)
[2018-02-06] MEDS ORDERED: CALCIUM GLUCONATE 1,000 MG in DEXT 5% WATER 90 ML IV NR (22:30)
[2018-02-07] MEDS: IPRATROPIUM/ALBUTEROL 0.5-3(2.5)MG/3ML NEB HHN SCH ×4 (03:45→21:36)
[2018-02-07] MEDS: BLOOD SUGAR DIAGNOSTIC STRIP TEST SCH ×4 (05:47→21:18)
[2018-02-07] MEDS: PHENYLEPHRINE/SHK LV/MO/PET,WH RECTAL OINT 28GM PR SCH ×4 (05:47→17:12)
[2018-02-07] MEDS: INSULIN LISPRO 100 UNITS/ML SUBCUT SCH ×4 (05:49→21:17)
[2018-02-07 07:00] VITALS: BP 117/51
[2018-02-07 07:47] LABS: CHLORIDE 104 mEq/L (98-107)
[2018-02-07] MEDS: PANTOPRAZOLE 40MG DR TABLET PO SCH (08:24)
[2018-02-07] MEDS: GUAIFENESIN 600MG ER TABLET PO SCH ×2 (08:24→21:03)
[2018-02-07] MEDS: DOCUSATE SODIUM 100MG CAPSULE PO SCH ×2 (08:24→17:11)
[2018-02-07 20:00] VITALS: BP 132/60
[2018-02-07] MEDS: LEVOFLOXACIN 250MG TABLET PO SCH (21:02)
[2018-02-07] MEDS: TRAZODONE HCL 50MG TABLET PO SCH (21:03)
[2018-02-07] MEDS: ACETAMINOPHEN 325MG TABLET PO PRN (21:03)
[2018-02-08 01:25] VITALS: BP 128/62
[2018-02-08] MEDS: IPRATROPIUM/ALBUTEROL 0.5-3(2.5)MG/3ML NEB HHN SCH ×3 (01:57→21:46)
[2018-02-08] MEDS: PHENYLEPHRINE/SHK LV/MO/PET,WH RECTAL OINT 28GM PR SCH ×4 (06:00→17:15)
[2018-02-08] MEDS: BLOOD SUGAR DIAGNOSTIC STRIP TEST SCH ×4 (06:43→21:00)
[2018-02-08] MEDS: INSULIN LISPRO 100 UNITS/ML SUBCUT SCH ×4 (06:45→22:14)
[2018-02-08 07:58] VITALS: BP 137/57
[2018-02-08] MEDS: DOCUSATE SODIUM 100MG CAPSULE PO SCH ×2 (10:17→17:11)
[2018-02-08] MEDS: PANTOPRAZOLE 40MG DR TABLET PO SCH (10:17)
[2018-02-08] MEDS: GUAIFENESIN 600MG ER TABLET PO SCH ×2 (10:51→22:12)
[2018-02-08 15:49] LABS: HEMATOCRIT. 31.6 % (36.0-48.0); HEMOGLOBIN. 10.6 g/dL (12.0-16.0); MEAN CORPUSCULAR HEMOGLOBIN 28.1 pg (28.0-32.0); MEAN CORPUSCULAR VOLUME 84.2 fL (81.0-99.0); MEAN PLATELET VOLUME 10.5 fl (7.4-10.4); PLATELET 125 x1000/uL (130-400); RED BLOOD CELL COUNT 3.76 mill/uL (4.2-5.4); RED CELL DISTRIBUTION WIDTH 16.8 % (11.6-14.6)
[2018-02-08 15:55] LABS: CHLORIDE 101 mEq/L (98-107)
[2018-02-08 16:15] LABS: PLATELET ESTIMATE DECREASED
[2018-02-08] MEDS: ACETAMINOPHEN 325MG TABLET PO PRN (17:36)
[2018-02-08 20:00] VITALS: BP 128/53
[2018-02-08] MEDS: LEVOFLOXACIN 250MG TABLET PO SCH (22:12)
[2018-02-08] MEDS: TRAZODONE HCL 50MG TABLET PO SCH (22:12)
[2018-02-09] MEDS: IPRATROPIUM/ALBUTEROL 0.5-3(2.5)MG/3ML NEB HHN SCH ×6 (05:22→20:38)
[2018-02-09] MEDS: PHENYLEPHRINE/SHK LV/MO/PET,WH RECTAL OINT 28GM PR SCH ×4 (06:00→17:25)
[2018-02-09] MEDS: INSULIN LISPRO 100 UNITS/ML SUBCUT SCH ×4 (06:11→22:02)
[2018-02-09] MEDS: BLOOD SUGAR DIAGNOSTIC STRIP TEST SCH ×4 (06:55→21:00)
[2018-02-09 08:04] VITALS: BP 125/51
[2018-02-09] MEDS: FUROSEMIDE 40MG/4ML VIAL IVP SCH (08:55)
[2018-02-09] MEDS: DOCUSATE SODIUM 100MG CAPSULE PO SCH ×2 (08:55→17:25)
[2018-02-09] MEDS: GUAIFENESIN 600MG ER TABLET PO SCH ×2 (08:55→22:01)
[2018-02-09] MEDS: PANTOPRAZOLE 40MG DR TABLET PO SCH (08:55)
[2018-02-09 09:07] LABS: HEMATOCRIT 32.2 % (36.0-48.0); HEMOGLOBIN 10.7 g/dL (12.0-16.0); MEAN CORPUSCULAR HEMOGLOBIN 28.1 pg (28.0-32.0); MEAN CORPUSCULAR VOLUME 84.3 fL (81.0-99.0); PLATELET 128 x1000/uL (130-400); RED BLOOD CELL COUNT 3.82 mill/uL (4.2-5.4); RED CELL DISTRIBUTION WIDTH 17.4 % (11.6-14.6)
[2018-02-09 10:00] LABS: CHLORIDE 103 mEq/L (98-107)
[2018-02-09] MEDS: ACETAMINOPHEN 325MG TABLET PO PRN (19:53)
[2018-02-09 20:00] VITALS: BP 135/46
[2018-02-09] MEDS: TRAZODONE HCL 50MG TABLET PO SCH (22:01)
[2018-02-10] VITALS: BP 129/62
[2018-02-10] MEDS: IPRATROPIUM/ALBUTEROL 0.5-3(2.5)MG/3ML NEB HHN SCH ×6 (00:25→21:33)
[2018-02-10] MEDS: PHENYLEPHRINE/SHK LV/MO/PET,WH RECTAL OINT 28GM PR SCH ×4 (05:44→17:43)
[2018-02-10 06:34] LABS: HEMATOCRIT 30.9 % (36.0-48.0); HEMOGLOBIN 10.5 g/dL (12.0-16.0); MEAN CORPUSCULAR HEMOGLOBIN 28.3 pg (28.0-32.0); MEAN CORPUSCULAR VOLUME 83.8 fL (81.0-99.0); PLATELET 127 x1000/uL (130-400); RED BLOOD CELL COUNT 3.69 mill/uL (4.2-5.4); RED CELL DISTRIBUTION WIDTH 17.3 % (11.6-14.6)
[2018-02-10] MEDS: BLOOD SUGAR DIAGNOSTIC STRIP TEST SCH ×4 (06:37→21:15)
[2018-02-10] MEDS: INSULIN LISPRO 100 UNITS/ML SUBCUT SCH ×4 (06:39→22:06)
[2018-02-10 06:43] LABS: CHLORIDE 103 mEq/L (98-107)
[2018-02-10 08:09] VITALS: BP 142/61
[2018-02-10] MEDS: GUAIFENESIN 600MG ER TABLET PO SCH ×2 (08:59→21:15)
[2018-02-10] MEDS: PANTOPRAZOLE 40MG DR TABLET PO SCH (08:59)
[2018-02-10] MEDS: FUROSEMIDE 40MG/4ML VIAL IVP SCH (09:00)
[2018-02-10] MEDS: ACETAMINOPHEN 325MG TABLET PO PRN ×2 (09:00→16:08)
[2018-02-10] MEDS: DOCUSATE SODIUM 100MG CAPSULE PO SCH ×2 (09:01→16:42)
[2018-02-10] MEDS ORDERED: LACTULOSE 20G/30ML UDC PO PRN ×2 (13:45→23:00)
[2018-02-10] MEDS ORDERED: CEFEPIME 1,000 MG in DEXTROSE 5% WATER 50 ML IV SCH (15:30)
[2018-02-10] MEDS: METRONIDAZOLE 500MG TABLET PO SCH ×2 (16:03→21:15)
[2018-02-10] MEDS: CLONIDINE 0.1MG TABLET PO PRN (17:04)
[2018-02-10 20:00] VITALS: BP 138/66
[2018-02-10] MEDS: TRAZODONE HCL 50MG TABLET PO SCH (21:15)
[2018-02-10] MEDS: CEFEPIME 1,000 MG in DEXTROSE 5% WATER 50 ML IV SCH ×2 (21:16→23:32)
[2018-02-11] MEDS ORDERED: DEXT 5%/0.9% NACL 1,000 ML IV SCH
[2018-02-11] MEDS: IPRATROPIUM/ALBUTEROL 0.5-3(2.5)MG/3ML NEB HHN SCH ×6 (01:20→21:31)
[2018-02-11] MEDS: PHENYLEPHRINE/SHK LV/MO/PET,WH RECTAL OINT 28GM PR SCH ×4 (05:42→17:36)
[2018-02-11] MEDS: BLOOD SUGAR DIAGNOSTIC STRIP TEST SCH ×4 (06:13→20:48)
[2018-02-11] MEDS: INSULIN LISPRO 100 UNITS/ML SUBCUT SCH ×4 (06:24→20:55)
[2018-02-11 08:02] VITALS: BP 125/52
[2018-02-11 08:23] LABS: HEMATOCRIT 31.6 % (36.0-48.0); HEMOGLOBIN 10.6 g/dL (12.0-16.0); MEAN CORPUSCULAR HEMOGLOBIN 27.9 pg (28.0-32.0); PLATELET 123 x1000/uL (130-400); RED CELL DISTRIBUTION WIDTH 17.5 % (11.6-14.6)
[2018-02-11] MEDS: FUROSEMIDE 40MG/4ML VIAL IVP SCH (08:38)
[2018-02-11] MEDS: METRONIDAZOLE 500MG TABLET PO SCH ×2 (08:38→20:48)
[2018-02-11] MEDS: DOCUSATE SODIUM 100MG CAPSULE PO SCH ×2 (08:38→17:31)
[2018-02-11] MEDS: GUAIFENESIN 600MG ER TABLET PO SCH ×2 (08:38→20:48)
[2018-02-11] MEDS: PANTOPRAZOLE 40MG DR TABLET PO SCH (08:38)
[2018-02-11 08:45] LABS: CHLORIDE 101 mEq/L (98-107)
[2018-02-11] MEDS ORDERED: SODIUM BICARBONATE 4% (2.4MEQ) 5ML VIAL IV ONE (10:34)
[2018-02-11] MEDS: CEFEPIME 1,000 MG in DEXTROSE 5% WATER 50 ML IV SCH ×2 (12:16→17:31)
[2018-02-11 20:00] VITALS: BP 121/58
[2018-02-11] MEDS: TRAZODONE HCL 50MG TABLET PO SCH (20:48)
[2018-02-12] MEDS: PHENYLEPHRINE/SHK LV/MO/PET,WH RECTAL OINT 28GM PR SCH ×6 (00:21→18:00)
[2018-02-12] MEDS: IPRATROPIUM/ALBUTEROL 0.5-3(2.5)MG/3ML NEB HHN SCH ×3 (04:45→21:53)
[2018-02-12] MEDS: CEFEPIME 1,000 MG in DEXTROSE 5% WATER 50 ML IV SCH ×2 (05:43→19:34)
[2018-02-12] MEDS: BLOOD SUGAR DIAGNOSTIC STRIP TEST SCH ×4 (05:43→21:00)
[2018-02-12] MEDS: INSULIN LISPRO 100 UNITS/ML SUBCUT SCH ×4 (06:06→21:00)
[2018-02-12 06:41] LABS: HEMATOCRIT 31.1 % (36.0-48.0); HEMOGLOBIN 10.4 g/dL (12.0-16.0); MEAN CORPUSCULAR HEMOGLOBIN 27.7 pg (28.0-32.0); PLATELET 125 x1000/uL (130-400); RED BLOOD CELL COUNT 3.74 mill/uL (4.2-5.4); RED CELL DISTRIBUTION WIDTH 17.8 % (11.6-14.6)
[2018-02-12 07:49] VITALS: BP 149/61
[2018-02-12] MEDS: FUROSEMIDE 40MG/4ML VIAL IVP SCH (08:45)
[2018-02-12] MEDS: DOCUSATE SODIUM 100MG CAPSULE PO SCH ×2 (08:46→17:49)
[2018-02-12] MEDS: METRONIDAZOLE 500MG TABLET PO SCH ×2 (08:46→21:24)
[2018-02-12] MEDS: GUAIFENESIN 600MG ER TABLET PO SCH ×2 (09:21→21:25)
[2018-02-12] MEDS: PANTOPRAZOLE 40MG DR TABLET PO SCH (09:21)
[2018-02-12 11:18] LABS: CHLORIDE 103 mEq/L (98-107)
[2018-02-12 20:00] VITALS: BP 122/40
[2018-02-12] MEDS: ACETAMINOPHEN 325MG TABLET PO PRN (21:25)
[2018-02-12] MEDS: TRAZODONE HCL 50MG TABLET PO SCH (21:25)
[2018-02-13] MEDS: IPRATROPIUM/ALBUTEROL 0.5-3(2.5)MG/3ML NEB HHN SCH ×6 (00:53→20:50)
[2018-02-13] MEDS: CEFEPIME 1,000 MG in DEXTROSE 5% WATER 50 ML IV SCH (01:18)
[2018-02-13] MEDS: PHENYLEPHRINE/SHK LV/MO/PET,WH RECTAL OINT 28GM PR SCH ×4 (05:59→17:21)
[2018-02-13] MEDS: BLOOD SUGAR DIAGNOSTIC STRIP TEST SCH ×4 (05:59→21:00)
[2018-02-13 08:00] VITALS: BP 136/59
[2018-02-13] MEDS: INSULIN LISPRO 100 UNITS/ML SUBCUT SCH ×4 (09:00→21:51)
[2018-02-13] MEDS: METRONIDAZOLE 500MG TABLET PO SCH ×2 (09:08→21:49)
[2018-02-13] MEDS: FUROSEMIDE 40MG/4ML VIAL IVP SCH (09:08)
[2018-02-13] MEDS: GUAIFENESIN 600MG ER TABLET PO SCH ×2 (09:08→21:49)
[2018-02-13] MEDS: PANTOPRAZOLE 40MG DR TABLET PO SCH (09:08)
[2018-02-13] MEDS: DOCUSATE SODIUM 100MG CAPSULE PO SCH ×2 (09:08→17:21)
[2018-02-13] MEDS ORDERED: CEFEPIME 1,000 MG in DEXTROSE 5% WATER 50 ML IV SCH (13:00)
[2018-02-13 20:00] VITALS: BP 117/61
[2018-02-13] MEDS: ACETAMINOPHEN 325MG TABLET PO PRN (21:49)
[2018-02-13] MEDS: TRAZODONE HCL 50MG TABLET PO SCH (21:50)
[2018-02-13 22:22] VITALS: BP 149/53
== END 2018-02-13 22:50 | disposition short-term general hospital (02) | DRG 947 ==
PROVIDERS: ADMIT Psychiatry & Neurology Neurology; ATTEND Internal Medicine
PROC: 0W993ZZ Drainage of Right Pleural Cavity, Percutaneous Approach (ICD-10-PCS; principal; 2018-02-11)
PROC: BB4BZZZ Ultrasonography of Pleura (ICD-10-PCS; 2018-02-11)
DX: R53.81 Other malaise (principal); K57.91 Diverticulosis of intestine, part unspecified, without perforation or abscess with bleeding; K85.00 Idiopathic acute pancreatitis without necrosis or infection; J18.1 Lobar pneumonia, unspecified organism; D68.9 Coagulation defect, unspecified; J44.0 Chronic obstructive pulmonary disease with (acute) lower respiratory infection; J90 Pleural effusion, not elsewhere classified; N18.9 Chronic kidney disease, unspecified; I12.9 Hypertensive chronic kidney disease with stage 1 through stage 4 chronic kidney disease, or unspecified chronic kidney disease; E11.22 Type 2 diabetes mellitus with diabetic chronic kidney disease; D69.6 Thrombocytopenia, unspecified; E78.00 Pure hypercholesterolemia, unspecified; E78.5 Hyperlipidemia, unspecified; F41.9 Anxiety disorder, unspecified; D64.9 Anemia, unspecified; K21.9 Gastro-esophageal reflux disease without esophagitis; K29.70 Gastritis, unspecified, without bleeding; R26.9 Unspecified abnormalities of gait and mobility; J20.9 Acute bronchitis, unspecified; K52.9 Noninfective gastroenteritis and colitis, unspecified; K82.4 Cholesterolosis of gallbladder; R74.0 Nonspecific elevation of levels of transaminase and lactic acid dehydrogenase [LDH]; R16.0 Hepatomegaly, not elsewhere classified; K57.90 Diverticulosis of intestine, part unspecified, without perforation or abscess without bleeding; E66.9 Obesity, unspecified; I25.10 Atherosclerotic heart disease of native coronary artery without angina pectoris; K29.60 Other gastritis without bleeding; F32.9 Major depressive disorder, single episode, unspecified; K64.9 Unspecified hemorrhoids; R59.0 Localized enlarged lymph nodes; F06.31 Mood disorder due to known physiological condition with depressive features; Z85.3 Personal history of malignant neoplasm of breast; Z87.01 Personal history of pneumonia (recurrent); Z90.10 Acquired absence of unspecified breast and nipple; Z92.21 Personal history of antineoplastic chemotherapy; Z92.3 Personal history of irradiation; Z90.710 Acquired absence of both cervix and uterus; Z90.49 Acquired absence of other specified parts of digestive tract
CPT/HCPCS: 32555; 36415; 36600; 71045; 71250; 76604; 80048; 82040; 82375; 82805; 82962; 83615; 83986; 84315; 85027; 93970; 94640; 97110; 97116; 97150; 97162; 97167; 97530; 97535; A6261; J0610; J0692; J1815; J1940; J1956; J2405; J3490; J7040; J7042; J7050; J7060; J7620

== ENCOUNTER 2018-02-13 23:55 | Inpatient (IN) | payer MEDICARE, MEDICAID ==
[~2018-02-13] VITALS: Ht 170.2 cm; Wt 92.5 kg
[2018-02-14] MEDS ORDERED: HYDROMORPHONE HCL/PF 2MG/ML CPJ IV PRN (00:15)
[2018-02-14 00:33] VITALS: BP 105/45
[2018-02-14] MEDS ORDERED: DEXTROSE 50% WATER 50ML SYRINGE IV PRN (00:45)
[2018-02-14 00:53] VITALS: BP 105/45
[2018-02-14] MEDS ORDERED: BISACODYL 5MG TABLET PO PRN (01:00)
[2018-02-14] MEDS ORDERED: NA PHOS,M-B/NA PHOS,DI-BA ENEMA 118ML PR ONE (01:00)
[2018-02-14 01:06] LABS: BG BASE EXCESS 5.8 mmol/L (-2.0-2.0); BG CARBOXYHEMOGLOBIN 0.6 % (0.5-1.5); BG DEOXYHEMOGLOBIN 8.8 % (0.0-5.0); BG FRACTION INSPIRED OXYGEN 36; BG HCO3 ACT 29.8 mmol/L (22.0-26.0); BG METHEMOGLOBIN 0.2 % (0.0-1.5); BG OXYGEN SATURATION 91.1 % (92.0-98.5); BG OXYHEMOGLOBIN 90.4 % (94.0-97.0); BG PCO2 40.6 mmHg (35.0-45.0); BG PH 7.483 (7.350-7.450); BG PO2 60.7 mmHg (75.0-100.0); BG SAMPLE SITE RIGHT RADIAL; BG TOTAL HEMOGLOBIN 10.1 g/dL (12.0-18.0); BG VENT MODE NASAL CANNULA
[2018-02-14] MEDS: FUROSEMIDE 40MG/4ML VIAL IV SCH ×3 (03:36→21:47)
[2018-02-14] MEDS: PIPERACILLIN/TAZ 3.375G PREMIX 50 ML IV SCH ×4 (03:59→22:00)
[2018-02-14 04:00] VITALS: BP 117/51
[2018-02-14] MEDS: ALBUTEROL (0.083%) 2.5MG/3ML NEB HHN SCH ×4 (05:10→21:23)
[2018-02-14] MEDS: PANTOPRAZOLE 40MG DR TABLET PO SCH ×2 (05:25→09:22)
[2018-02-14] MEDS: BLOOD SUGAR DIAGNOSTIC STRIP TEST SCH ×4 (07:40→21:00)
[2018-02-14 08:00] VITALS: BP 110/51
[2018-02-14 08:42] LABS: HEMATOCRIT. 32.2 % (36.0-48.0); HEMOGLOBIN. 10.8 g/dL (12.0-16.0); MEAN CORPUSCULAR HEMOGLOBIN 27.7 pg (28.0-32.0); MEAN CORPUSCULAR VOLUME 82.8 fL (81.0-99.0); MEAN PLATELET VOLUME 10.4 fl (7.4-10.4); PLATELET 133 x1000/uL (130-400); RED BLOOD CELL COUNT 3.89 mill/uL (4.2-5.4); RED CELL DISTRIBUTION WIDTH 18.3 % (11.6-14.6)
[2018-02-14] MEDS ORDERED: FUROSEMIDE 100MG/10ML VIAL IVP SCH (09:00)
[2018-02-14] MEDS: INSULIN LISPRO 100 UNITS/ML SUBCUT SCH ×4 (09:23→21:00)
[2018-02-14 09:29] LABS: CHLORIDE 100 mEq/L (98-107)
[2018-02-14 12:00] VITALS: BP 149/50
[2018-02-14 13:50] LABS: PLATELET ESTIMATE NORMAL
[2018-02-14 16:00] VITALS: BP 123/47
[2018-02-14] MEDS: ACETAMINOPHEN 650MG/20.3ML UDC PO PRN (21:48)
[2018-02-15 00:16] VITALS: BP 108/40
[2018-02-15] MEDS: ALBUTEROL (0.083%) 2.5MG/3ML NEB HHN SCH ×6 (01:04→22:10)
[2018-02-15] MEDS: PIPERACILLIN/TAZ 3.375G PREMIX 50 ML IV SCH ×4 (03:18→22:48)
[2018-02-15 04:00] VITALS: BP_SYST 128; BP_DIAS 52; BP_DIAS 82
[2018-02-15 07:32] LABS: INR 1.5; PARTIAL THROMBOPLASTIN TIME 48.5 sec (23.4-31.0)
[2018-02-15] MEDS: BLOOD SUGAR DIAGNOSTIC STRIP TEST SCH ×4 (07:43→21:00)
[2018-02-15] MEDS: INSULIN LISPRO 100 UNITS/ML SUBCUT SCH ×4 (07:43→23:10)
[2018-02-15 08:14] VITALS: BP 134/54
[2018-02-15] MEDS: PANTOPRAZOLE 40MG DR TABLET PO SCH (08:37)
[2018-02-15] MEDS: FUROSEMIDE 40MG/4ML VIAL IV SCH ×2 (08:37→22:48)
[2018-02-15 12:00] VITALS: BP 129/59
[2018-02-15 12:11] LABS: HEMATOCRIT 30.7 % (36.0-48.0); HEMOGLOBIN 10.3 g/dL (12.0-16.0); MEAN CORPUSCULAR VOLUME 83.6 fL (81.0-99.0); PLATELET 147 x1000/uL (130-400); RED BLOOD CELL COUNT 3.67 mill/uL (4.2-5.4); RED CELL DISTRIBUTION WIDTH 18.1 % (11.6-14.6)
[2018-02-15 12:30] LABS: CHLORIDE 102 mEq/L (98-107)
[2018-02-15] MEDS ORDERED: SODIUM BICARBONATE 4% (2.4MEQ) 5ML VIAL IV ONE ×2 (13:16→13:36)
[2018-02-15] MEDS ORDERED: LIDOCAINE HCL 1% 20ML VIAL (Pyxis) INJ ONE (13:16)
[2018-02-15 15:59] LABS: BG CARBOXYHEMOGLOBIN 0.8 % (0.5-1.5); BG FRACTION INSPIRED OXYGEN 28; BG HCO3 ACT 29.3 mmol/L (22.0-26.0); BG METHEMOGLOBIN 0.2 % (0.0-1.5); BG OXYGEN SATURATION 94.9 % (92.0-98.5); BG PCO2 37.5 mmHg (35.0-45.0); BG PH 7.511 (7.350-7.450); BG PO2 71.9 mmHg (75.0-100.0); BG SAMPLE SITE RIGHT BRACHIAL; BG TOTAL HEMOGLOBIN 11.2 g/dL (12.0-18.0); BG VENT MODE NASAL CANNULA
[2018-02-15 16:00] VITALS: BP 125/54
[2018-02-15] MEDS ORDERED: ONDANSETRON HCL 4MG/2ML INJ IV PRN (18:00)
[2018-02-15] MEDS: TRAZODONE HCL 50MG TABLET PO SCH (22:54)
[2018-02-16 00:53] VITALS: BP 121/52
[2018-02-16] MEDS: ALBUTEROL (0.083%) 2.5MG/3ML NEB HHN SCH ×6 (01:51→19:55)
[2018-02-16] MEDS: PIPERACILLIN/TAZ 3.375G PREMIX 50 ML IV SCH ×4 (03:03→22:27)
[2018-02-16 04:00] VITALS: BP 102/44
[2018-02-16] MEDS: BLOOD SUGAR DIAGNOSTIC STRIP TEST SCH ×4 (07:40→21:00)
[2018-02-16 08:00] VITALS: BP 123/51
[2018-02-16] MEDS: INSULIN LISPRO 100 UNITS/ML SUBCUT SCH ×4 (08:10→22:32)
[2018-02-16 08:24] LABS: HEMATOCRIT 31.9 % (36.0-48.0); HEMOGLOBIN 10.8 g/dL (12.0-16.0); MEAN CORPUSCULAR HEMOGLOBIN 28.2 pg (28.0-32.0); MEAN CORPUSCULAR VOLUME 83.2 fL (81.0-99.0); RED BLOOD CELL COUNT 3.84 mill/uL (4.2-5.4); RED CELL DISTRIBUTION WIDTH 18.3 % (11.6-14.6)
[2018-02-16 08:38] LABS: CHLORIDE 101 mEq/L (98-107)
[2018-02-16] MEDS: PANTOPRAZOLE 40MG DR TABLET PO SCH (09:28)
[2018-02-16] MEDS: DOCUSATE SODIUM 100MG CAPSULE PO SCH ×2 (09:28→17:00)
[2018-02-16] MEDS: FUROSEMIDE 40MG/4ML VIAL IV SCH ×2 (09:28→22:27)
[2018-02-16 12:12] VITALS: BP 129/50
[2018-02-16 15:49] VITALS: BP 107/65
[2018-02-16 20:00] VITALS: BP 128/62
[2018-02-16] MEDS: TRAZODONE HCL 50MG TABLET PO SCH (22:27)
[2018-02-16] MEDS: ACETAMINOPHEN 650MG/20.3ML UDC PO PRN (22:27)
[2018-02-17] MEDS: ALBUTEROL (0.083%) 2.5MG/3ML NEB HHN SCH ×6 (00:34→20:09)
[2018-02-17 00:39] VITALS: BP 111/44
[2018-02-17] MEDS: PIPERACILLIN/TAZ 3.375G PREMIX 50 ML IV SCH ×4 (01:45→21:15)
[2018-02-17 04:00] VITALS: BP 115/48
[2018-02-17 07:52] LABS: HEMOGLOBIN 10.4 g/dL (12.0-16.0); MEAN CORPUSCULAR HEMOGLOBIN 28.1 pg (28.0-32.0); MEAN CORPUSCULAR VOLUME 83.8 fL (81.0-99.0); PLATELET 160 x1000/uL (130-400); RED BLOOD CELL COUNT 3.69 mill/uL (4.2-5.4)
[2018-02-17] MEDS: INSULIN LISPRO 100 UNITS/ML SUBCUT SCH ×4 (07:54→21:24)
[2018-02-17] MEDS: BLOOD SUGAR DIAGNOSTIC STRIP TEST SCH ×4 (07:54→21:00)
[2018-02-17 08:00] VITALS: BP 130/53
[2018-02-17] MEDS: PANTOPRAZOLE 40MG DR TABLET PO SCH (08:41)
[2018-02-17] MEDS: FUROSEMIDE 40MG/4ML VIAL IV SCH ×2 (08:41→21:15)
[2018-02-17] MEDS: DOCUSATE SODIUM 100MG CAPSULE PO SCH ×2 (08:41→17:37)
[2018-02-17 08:51] LABS: CHLORIDE 101 mEq/L (98-107)
[2018-02-17 12:00] VITALS: BP 135/46
[2018-02-17 16:00] VITALS: BP 121/55
[2018-02-17 20:00] VITALS: BP 94/53
[2018-02-17] MEDS: TRAZODONE HCL 50MG TABLET PO SCH (21:15)
[2018-02-18] VITALS: BP 108/45
[2018-02-18] MEDS: ALBUTEROL (0.083%) 2.5MG/3ML NEB HHN SCH ×6 (00:27→20:16)
[2018-02-18] MEDS: PIPERACILLIN/TAZ 3.375G PREMIX 50 ML IV SCH ×3 (02:35→14:50)
[2018-02-18 04:00] VITALS: BP 119/53
[2018-02-18 08:00] VITALS: BP 142/65
[2018-02-18] MEDS: INSULIN LISPRO 100 UNITS/ML SUBCUT SCH ×4 (08:10→22:04)
[2018-02-18] MEDS: BLOOD SUGAR DIAGNOSTIC STRIP TEST SCH ×4 (08:21→21:48)
[2018-02-18] MEDS: FUROSEMIDE 40MG/4ML VIAL IV SCH ×2 (09:17→21:41)
[2018-02-18] MEDS: PANTOPRAZOLE 40MG DR TABLET PO SCH (09:17)
[2018-02-18] MEDS: DOCUSATE SODIUM 100MG CAPSULE PO SCH ×2 (09:17→18:43)
[2018-02-18 12:00] VITALS: BP 118/53
[2018-02-18 15:15] LABS: BG BASE EXCESS 7.5 mmol/L (-2.0-2.0); BG CARBOXYHEMOGLOBIN 1.6 % (0.5-1.5); BG DEOXYHEMOGLOBIN 10.6 % (0.0-5.0); BG HCO3 ACT 31.3 mmol/L (22.0-26.0); BG METHEMOGLOBIN 0.4 % (0.0-1.5); BG OXYGEN SATURATION 89.2 % (92.0-98.5); BG OXYHEMOGLOBIN 87.4 % (94.0-97.0); BG PCO2 40.9 mmHg (35.0-45.0); BG PH 7.502 (7.350-7.450); BG PO2 52.9 mmHg (75.0-100.0); BG SAMPLE SITE RIGHT BRACHIAL; BG TOTAL HEMOGLOBIN 10.7 g/dL (12.0-18.0); BG VENT MODE ROOM AIR
[2018-02-18] MEDS ORDERED: HYDROMORPHONE HCL/PF 2MG/ML CPJ IV PRN (18:15)
[2018-02-18] MEDS: METFORMIN HCL 500MG TABLET PO SCH (18:43)
[2018-02-18 20:00] VITALS: BP 153/60
[2018-02-18] MEDS: TRAZODONE HCL 50MG TABLET PO SCH (21:41)
[2018-02-19] VITALS: BP 123/43
[2018-02-19] MEDS: ALBUTEROL (0.083%) 2.5MG/3ML NEB HHN SCH ×3 (00:09→09:10)
[2018-02-19 04:00] VITALS: BP 139/61
[2018-02-19] MEDS ORDERED: FAMOTIDINE 20MG TABLET PO SCH (07:40)
[2018-02-19 08:00] VITALS: BP 142/54
[2018-02-19] MEDS: BLOOD SUGAR DIAGNOSTIC STRIP TEST SCH (08:32)
[2018-02-19] MEDS: FUROSEMIDE 40MG/4ML VIAL IV SCH (08:41)
[2018-02-19] MEDS: METFORMIN HCL 500MG TABLET PO SCH (08:41)
[2018-02-19] MEDS: INSULIN LISPRO 100 UNITS/ML SUBCUT SCH (08:43)
[2018-02-19] MEDS: DOCUSATE SODIUM 100MG CAPSULE PO SCH (08:44)
[2018-02-19 09:55] VITALS: BP 142/54
== END 2018-02-19 11:30 | disposition home health service (06) | DRG 193 ==
LOC: 7WST 23:55
PROVIDERS: ADMIT Internal Medicine; ATTEND Internal Medicine
PROC: 0W9930Z Drainage of Right Pleural Cavity with Drainage Device, Percutaneous Approach (ICD-10-PCS; principal; 2018-02-15)
DX: J18.1 Lobar pneumonia, unspecified organism (principal); K85.90 Acute pancreatitis without necrosis or infection, unspecified; K57.91 Diverticulosis of intestine, part unspecified, without perforation or abscess with bleeding; J90 Pleural effusion, not elsewhere classified; D68.9 Coagulation defect, unspecified; R17 Unspecified jaundice; I10 Essential (primary) hypertension; D64.9 Anemia, unspecified; E11.9 Type 2 diabetes mellitus without complications; D69.6 Thrombocytopenia, unspecified; E66.01 Morbid (severe) obesity due to excess calories; E78.00 Pure hypercholesterolemia, unspecified; E78.5 Hyperlipidemia, unspecified; E88.81 Metabolic syndrome and other insulin resistance; F41.9 Anxiety disorder, unspecified; I11.9 Hypertensive heart disease without heart failure; R62.7 Adult failure to thrive; R26.9 Unspecified abnormalities of gait and mobility; R59.0 Localized enlarged lymph nodes; R53.81 Other malaise; J20.9 Acute bronchitis, unspecified; J42 Unspecified chronic bronchitis; K59.00 Constipation, unspecified; N28.1 Cyst of kidney, acquired; R09.02 Hypoxemia; Z85.3 Personal history of malignant neoplasm of breast; Z90.13 Acquired absence of bilateral breasts and nipples; Z90.49 Acquired absence of other specified parts of digestive tract; Z68.32 Body mass index [BMI] 32.0-32.9, adult; Z90.710 Acquired absence of both cervix and uterus
CPT/HCPCS: 32555; 36415; 36600; 71045; 76700; 78582; 80048; 80076; 82375; 82805; 82962; 83036; 85027; 86300; 88108; 88312; 93306; 94640; 97162; 97530; A9558; C1893; J1815; J1940; J2543; J3490; J7040; J7050; J7611